=== PATIENT | female | born 1945 | race Caucasian/White ===

== ENCOUNTER 2019-11-17 17:09 | Emergency (ER) | payer MEDICARE ==
[~2019-11-17] VITALS: Ht 162.6 cm; Wt 63.5 kg
[~2019-11-17 17:09] MED LIST: ASPIR 8181 MG PO; ATIVAN0.5 MG PO; HYDROCODON-ACE1 EAC7 PO; LIORESAL 10 MG10 MG PO; LIPITOR10 MG PO; MINOCIN100 MG PO; NEURONTIN 300300 M1 PO; NOHOMEMEDICATIONS; PROTONIX40 M1 PO; SALINE FLUSH IV PUSH; VALIUM5 MG PO
[2019-11-17 17:41] LABS: HEMATOCRIT 39.7 % (37.0-47.0); HEMOGLOBIN 13.7 gm/dL (12.0-15.0); MCH 31.7 pg (26.0-34.0); MCHC 34.4 g/dL (28.0-37.0); MCV 92.2 fL (80.0-100.0); NUCLEATED RBCS 0 /100WBC; PLATELET COUNT* 164 thou/uL (150-400); RBC 4.31 mil/uL (4.20-5.00); RDW-CV 12.6 % (10.5-14.5)
[2019-11-17 17:48] LABS: CALCIUM 11.2 mg/dL (8.5-10.1); CREATININE 1.3 mg/dL (0.6-1.3); POTASSIUM 4.3 mmol/L (3.5-5.1)
[2019-11-17 17:53] LABS: ALBUMIN 3.7 g/dL (3.4-5.0); TOTAL BILIRUBIN 0.3 mg/dL (<0.1-1.0); TOTAL PROTEIN 7.5 g/dL (6.4-8.2)
[2019-11-17 17:55] LABS: ABSOLUTE LYMPHOCYTES 0.8 thou/uL (0.8-5.3); ABSOLUTE MONOCYTES 0.1 thou/uL (0.0-1.2); ABSOLUTE NEUTROPHILS 7.1 thou/uL (1.6-8.1); ATYPICAL LYMPHS 2 %
[2019-11-17 17:56] LABS: PLATELET ESTIMATE ADEQUATE
[2019-11-17 19:14] LABS: URINE BILIRUBIN NEGATIVE (Negative); URINE BLOOD 2+ (Negative); URINE CLARITY HAZY; URINE COLOR YELLOW; URINE GLUCOSE-RANDOM NEGATIVE (Negative); URINE KETONES NEGATIVE (Negative); URINE LEUKOCYTES-REFLEX 1+ (Negative); URINE NITRITE-REFLEX POSITIVE (Negative); URINE PROTEIN NEGATIVE (Negative); URINE UROBILINOGEN 0.2 E.U./dl (0.2-1.0)
[2019-11-17 19:17] LABS: BACTERIA-REFLEX >30 Many /HPF (None Seen); CASTS None Seen /LPF (None Seen); CRYSTALS None Seen /LPF (None Seen); SQUAMOUS 4-10 Moderate /LPF (0-3); URINE RBC 3-10 Few /HPF (0-2); URINE WBC-REFLEX 0-5 Rare /HPF (0-5)
[2019-11-17] MEDS ORDERED: FLOMAX0.4 MG PO ×2 (21:09→21:14)
[2019-11-17] MEDS ORDERED: OXYCODONE HCL 55 MG PO ×2 (21:09→21:14)
[2019-11-17] MEDS ORDERED: LEVAQUIN 500 M500 M3 PO (21:09)
[2019-11-17] MEDS ORDERED: FLAGYL500 M1 PO ×2 (21:09→21:14)
[2019-11-17] MEDS ORDERED: LEVAQUIN 500 M500 M6 PO (21:14)
[2019-11-17 21:58] VITALS: BP 109/77
== END 2019-11-17 21:59 | disposition home or self-care (01) ==
LOC: M.ERS 17:09
PROVIDERS: Emergency Medicine
DX: K52.9 Noninfective gastroenteritis and colitis, unspecified (principal); N39.0 Urinary tract infection, site not specified; N23 Unspecified renal colic; Z86.73 Personal history of transient ischemic attack (TIA), and cerebral infarction without residual deficits

== ENCOUNTER 2019-12-29 18:32 | Inpatient (IN) | payer MEDICARE ==
[~2019-12-29] VITALS: Ht 165.1 cm; Wt 61.2 kg
--- NOTE | ~2019-12-29 | PROC ---
[address] [address] PROCEDURE REPORT Name: FRANDY MARCELINO Room: [address] IN M.R.#: [id number] Admission: 12/29/19 Attend Phys: José Manuel Liz MD Discharge: 01/02/20 Date of : 49 Report #: [id number] THIS REPORT FOR: //name// cc: Homa Salcedo Angela Jo RNP ~ THIS REPORT FOR: //name// For GI report, please see the Provation report in Perceptive 7 content. By: 0615Medical Records Staff MARY /DARRYL
--- NOTE | ~2019-12-29 | H ---
[place] [address] HISTORY AND PHYSICAL Name: FRANDY MARCELINO Room: [address] IN [facility]#: [id number] Admission: 12/29/19 Attend Phys: José Manuel Liz MD Discharge: Date of : 49 Report #: [id number] THIS REPORT FOR: //name// cc: Homa Salcedo Angela Jo RNP ~ THIS REPORT FOR: //name// CC: Homa Liz DATE OF SERVICE: 12/29/2019 REASON FOR CONSULT: Abnormal CT and rectal bleeding. HISTORY OF PRESENT ILLNESS: This is a 74-year-old female with history of CVA and right-sided deficit. The patient reports that she usually have normal bowel habits, but yesterday after eating a salad, she tried to have a bowel movement but could not. After straining for a while, she started having bloody stool. This prompted her to call her primary care physician who encouraged her to come to emergency room. Upon her visit in ER, she had a CT of abdomen and pelvis, which revealed thickening of the left side of the colon. She also had mild leukocytosis. The patient was admitted to hospital and we were consulted. Currently, the patient is lying in bed, complains of some pain in the left side, mainly with deep palpation. She denies fever or chills, but reports that she is still having rectal bleeding. She denies any upper GI symptoms. She denies nausea, vomiting, dyspepsia, GERD or dysphagia. The patient reports that she usually takes a baby aspirin and ibuprofen before going to bed. She is not on any other blood thinners. PAST MEDICAL HISTORY: Significant for; 1. HISTORY of CVA with right-sided weakness. 2. Kidney stones. 3. Anxiety disorder. 4. Chronic pain. 5. Hypercalcemia. The patient also takes medication for dyslipidemia. ALLERGIES: No known drug allergy. MEDICATIONS: Please refer to MAR. SOCIAL HISTORY: The patient lives at home, has had history of stroke with right hemiparesis. She also was in the hospital recently for kidney stones. FAMILY HISTORY: [place] [address] HISTORY AND PHYSICAL Name: FRANDY MARCELINO Room: [address]#: [id number] Admission: 12/29/19 Attend Phys: José Manuel Liz MD Discharge: Date of : 49 Report #: [id number] PHYSICAL EXAMINATION: VITAL SIGNS: Reveals blood pressure of 128/76, respirations 19, pulse 107, temperature 98. LUNGS: Clear. CARDIOVASCULAR: Regular. ABDOMEN: Soft, tender to palpation in the left side. Bowel sounds are positive. NEUROLOGIC: The patient is alert and oriented x 3. There is a right-sided weakness. LABORATORY DATA: Revealed sodium of 142, potassium 3.9, BUN is 22, creatinine is 0.8, glucose is 176, lipase 289. Magnesium 1.8, ALT is 20, alkaline phosphatase is 101. INR is 1.0. WBC is 12.1 with hemoglobin of 14 and platelet of 167. IMAGING: As discussed above. ASSESSMENT AND PLAN: The patient with acute abdominal pain and diarrhea, which is bloody. She also has mild leukocytosis and CT suggestive of thickening of the colon in the left side. She has never had a colonoscopy. Our suspicion is high for colonic ischemia. We will place her on antibiotic including Cipro and Flagyl as she has abdominal pain and leukocytosis. We will proceed with prepping her for colonoscopy tomorrow and make further recommendation based on finding. The patient is agreeable with plan. By: 1134 [id number] Mares MD /nt
[~2019-12-29 18:32] MED LIST changes: +FLAGYL500 M1 PO; +FLOMAX0.4 MG PO; +LEVAQUIN 500 M500 M3 PO; +LEVAQUIN 500 M500 M6 PO; +OXYCODONE HCL 55 MG PO
[2019-12-29 18:41] VITALS: BP 140/83
[2019-12-29] MEDS ORDERED: LORAZEPAM 0.50.5 MG PO (18:46)
[2019-12-29 19:00] LABS: HEMATOCRIT 40.5 % (37.0-47.0); MCH 31.8 pg (26.0-34.0); MCHC 34.6 g/dL (28.0-37.0); MCV 91.8 fL (80.0-100.0); MPV 7.8 fl. (7.2-11.1); NUCLEATED RBCS 0 /100WBC; PLATELET COUNT* 167 thou/uL (150-400); RBC 4.41 mil/uL (4.20-5.00); RDW-CV 12.9 % (10.5-14.5); WBC 12.1 thou/uL (4.0-11.0)
[2019-12-29 19:05] LABS: CALCIUM 10.6 mg/dL (8.5-10.1); CREATININE 0.8 mg/dL (0.6-1.3); POTASSIUM 3.9 mmol/L (3.5-5.1)
[2019-12-29 19:08] LABS: APTT 21.9 Seconds (25.0-31.3); PROTIME 10.3 Seconds (9.20-11.50)
[2019-12-29 19:09] LABS: ALBUMIN 3.8 g/dL (3.4-5.0); TOTAL BILIRUBIN 0.4 mg/dL (<0.1-1.0); TOTAL PROTEIN 7.5 g/dL (6.4-8.2)
[2019-12-29 19:24] LABS: ABSOLUTE LYMPHOCYTES 0.8 thou/uL (0.8-5.3); ABSOLUTE MONOCYTES 0.6 thou/uL (0.0-1.2); ABSOLUTE NEUTROPHILS 10.6 thou/uL (1.6-8.1)
[2019-12-29 19:25] LABS: PLATELET ESTIMATE ADEQUATE
[2019-12-29 20:15] LABS: URINE BILIRUBIN NEGATIVE (Negative); URINE BLOOD 1+ (Negative); URINE COLOR YELLOW; URINE GLUCOSE-RANDOM NEGATIVE (Negative); URINE KETONES 1+ (Negative); URINE LEUKOCYTES NEGATIVE (Negative); URINE NITRITE NEGATIVE (Negative); URINE PROTEIN NEGATIVE (Negative); URINE UROBILINOGEN 0.2 E.U./dl (0.2-1.0)
[2019-12-29 20:16] LABS: URINE CLARITY HAZY
[2019-12-29 20:25] LABS: SQUAMOUS 0-3 Few /LPF (0-3)
[2019-12-29 20:26] LABS: BACTERIA None Seen /HPF (None Seen); CASTS None Seen /LPF (None Seen); CRYSTALS None Seen /LPF (None Seen); MUCUS 0-3 Light strn/LPF (None Seen); URINE RBC 0-2 Rare /HPF (0-2); URINE WBC None Seen /HPF (0-5)
[2019-12-29 22:35] VITALS: BP 143/86
--- NOTE | 2019-12-30 04:52 | NUR ---
PATIENT REPORTS SLIGHT ABDOMINAL PAIN RATE 4/10 GAVE A ONETIME ORDER DOSE OF HYDROCODONE AT 0206. SHE IS ASSIST X 1 ON BEDPAN. SHE STATES SHE USES MOSTLY A WHEELCHAIR AT HOME BUT CAN USE A CANE AND IS ABLE TO AMBULATE A LITTLE. HX OF CVA IN 2013 WITH RIGHT SIDED WEAKNESS ON BOTH UPPER AND LOWER RIGHT LIMBS. ALERT AND ORIENTED BUT WITH SOME FORGETFULNESS OF DATES ETC. CT SHOWS COLITIS. BLOOD REPORTED IN STOOL AND URINE. SHE WAS ABLE TO REST THROUGH SHIFT AFTER ARRIVING 2230. PLAN TO CONSULT WITH GI. WILL CONTINUE TO MONITOR.
--- NOTE | 2019-12-30 05:35 | NUR ---
TRIED TO CALL IN ROUTINE CONSULT TO GI - DR SIMPSON AT [phone]. OFFICE OPENS AT 8 AM. WILL PASS TO DAY SHIFT.
[2019-12-30 09:10] VITALS: BP 128/76
[2019-12-30 12:10] LABS: ABSOLUTE LYMPHOCYTES 0.9 thou/uL (0.8-5.3); ABSOLUTE MONOCYTES 0.9 thou/uL (0.0-1.2); ABSOLUTE NEUTROPHILS 10.6 thou/uL (1.6-8.1); BASOPHILS 0.2 %; HEMOGLOBIN 13.5 gm/dL (12.0-15.0); LYMPHOCYTES 7.6 %; MCH 31.7 pg (26.0-34.0); MCHC 34.6 g/dL (28.0-37.0); MCV 91.8 fL (80.0-100.0); MONOCYTES 7.1 %; MPV 7.9 fl. (7.2-11.1); NUCLEATED RBCS 0 /100WBC; PLATELET COUNT* 145 thou/uL (150-400); POLYS 85.1 %; RBC 4.25 mil/uL (4.20-5.00); RDW-CV 12.7 % (10.5-14.5); WBC 12.4 thou/uL (4.0-11.0)
[2019-12-30 12:19] LABS: CALCIUM 9.6 mg/dL (8.5-10.1); CREATININE 0.7 mg/dL (0.6-1.3); MAGNESIUM 1.6 mg/dL (1.8-2.4); POTASSIUM 3.5 mmol/L (3.5-5.1)
[2019-12-30 12:39] LABS: CALCIUM 9.4 mg/dL (8.5-10.1); CREATININE 0.8 mg/dL (0.6-1.3); PHOSPHORUS* 1.5 mg/dL (2.5-4.9)
--- NOTE | 2019-12-30 12:57 | EKG ---
[place] [address] ELECTROCARDIOGRAM REPORT Name: EDGARDO MARCELINONA Patti Room: [address] ADM IN M.R.#: [id number] Admission: 12/29/19 Attend Phys: José Manuel Liz, Discharge: Date of : 49 Date of Service: 12/29/19 190 Report #: [id number] THIS REPORT FOR: //name// [facility] ED Test Date: 2019-12-29 Test Time: 19:04:12 Pat Name: FRANDY MARCELINO Department: Room: [facility] Gender: F Loop Cutter: [place] : 1945 Requested By: Gris Mead Order Number: [id number] MD: Cy Peng Measurements Intervals [place] Rate: 95 P: 52 WA: 165 QRS: -45 QRSD: 94 T: 43 QT: 358 QTc: 450 Interpretive Statements Sinus rhythm Probable left atrial enlargement Inferior infarct, old Consider anterior infarct Baseline wander in lead(s) V5 Compared to ECG 08/28/2014 07:18:08 Sinus tachycardia no longer present Myocardial infarct finding still present Electronically Signed On 12-30-2019 12:56:12 SHIPPING WEIGHER by Cy Peng [email or web address] <ELECTRONICALLY SIGNED> By: Cy Peng MD, FAC 12/30/19 1256 1904 1904 Cy Peng MD, [facility] /EPI
--- NOTE | 2019-12-30 17:07 | NUR ---
ASSUMED CARE OF PATIENT AT APPROX 0730. ALERT AND ORIENTED X4. ASSESSMENT COMPLETED AND CHARTED. VSS ON ROOM AIR. PATIENT HAS RIGHT SIDED WEAKNESS FROM PREVIOUS CVA, CANNOT BEAR WEIGHT WITH RIGHT ARM OR LEG. DR GRIGGS SAW PATIENT THIS AM AND ORDERED BOWEL PREP OF MIRALAX AND DUCOLAX. DISCUSSED OPTION FOR USING THE COMMODE OR BEDPAN DURING BOWEL PREP, DUE TO HER RIGHT SIDED WEAKNESS AND INABILITY TO HOLD HER BOWELS TO GET ON THE BEDPAN OR COMMODE. PATIENT REFUSED BOWEL PREP STATING THAT SHE COULDNT TOLERATE THE CRAMPING SHE WILL HAVE WITH IT. CALLED DR GRIGGS TO LET HIM KNOW THAT THE PATIENT DOES NOT WANT TO DO THE BOWEL PREP AND THAT SHE MAY NOT BE READY FOR HER COLONOSCOPY TOMORROW MORNING. WILL DISCUSS PREP WITH PATIENT AGAIN. FALL PRECAUTIONS IN PLACE. CALL LIGHT WITHIN REACH. HOURLY ROUNDS COMPLETED. WILL CONTINUE WITH PLAN OF CARE PATIENT ALLOWS PARTICIPATION.
[2019-12-30 19:24] VITALS: BP 132/78
[2019-12-31 03:54] LABS: CALCIUM 9.1 mg/dL (8.5-10.1); CREATININE 0.6 mg/dL (0.6-1.3); HEMATOCRIT 36.8 % (37.0-47.0); HEMOGLOBIN 12.8 gm/dL (12.0-15.0); MAGNESIUM 1.6 mg/dL (1.8-2.4); MCH 31.5 pg (26.0-34.0); MCHC 34.7 g/dL (28.0-37.0); MCV 90.9 fL (80.0-100.0); MPV 7.7 fl. (7.2-11.1); POTASSIUM 3.2 mmol/L (3.5-5.1); RBC 4.05 mil/uL (4.20-5.00); RDW-CV 12.9 % (10.5-14.5); WBC 11.7 thou/uL (4.0-11.0)
--- NOTE | 2019-12-31 04:20 | NUR ---
ASSUMED CARE OF PT 12/30/19 AT APPROX 1915, PT A&OX4, PT ON ROOM AIR, VSS, DISCUSSED BOWEL PREP WITH PT - PT REFUSING BOWEL PREP D/T WORRIES OF "REALLY BAD CRAMPING", PT AWARE THIS MAY PREVENT COLONOSCOPY PROCEDURE THIS AM, PT USING BEDPAN FOR VOIDING, NO BM THIS SHIFT. ASSESSMENTS AND HOURLY ROUNDINGS COMPLETED, WILL CONTINUE TO MONITOR.
[2019-12-31 07:40] VITALS: BP 114/72
--- NOTE | 2019-12-31 18:42 | NUR ---
ASSUMED CARE OF PATIENT AT APPROX 0730. ALERT AND OREINTED X4. ASSESSMENT COMPLETED AND CHARTED. VSS ON ON ROOM AIR. NO COMPLAINTS OF PAIN THIS SHIFT. PATIENT AGREED TO START BOWEL PREP THAT WAS ORDERED YESTERDAY, MIRALAX STARTED THIS AFTERNOON. PATIENT HAVING LIQUID STOOLS, STILL HAVING BLOOD IN THEM. FLUIDS INFUSED AND CIPRO AND FLAGYL GIVEN PO ORDERED. NO OTHER COMPLAINTS THIS SHIFT. FALL PRECAUTIONS IN PLACE. CALL LIGHT WITHIN REACH. HOURLY ROUNDS COMPLETED. WILL CONTINUE WITH PLAN OF CARE.
[2019-12-31 20:05] VITALS: BP 134/78
[2019-12-31 22:09] VITALS: BP 134/78
[2020-01-01 00:39] VITALS: BP 134/78
[2020-01-01 03:26] LABS: HEMATOCRIT 35.3 % (37.0-47.0); HEMOGLOBIN 12.2 gm/dL (12.0-15.0); MCH 31.7 pg (26.0-34.0); MCHC 34.7 g/dL (28.0-37.0); MCV 91.5 fL (80.0-100.0); RBC 3.86 mil/uL (4.20-5.00); RDW-CV 13.1 % (10.5-14.5); WBC 8.7 thou/uL (4.0-11.0)
[2020-01-01 03:52] LABS: CALCIUM 8.9 mg/dL (8.5-10.1); CREATININE 0.6 mg/dL (0.6-1.3); MAGNESIUM 1.7 mg/dL (1.8-2.4); POTASSIUM 3.3 mmol/L (3.5-5.1)
--- NOTE | 2020-01-01 05:28 | NUR ---
ASSUMED CARE OF PT 12/31/19, PT A&OX4 ON ROOM AIR, VSS, BOWEL PREP FLUIDS COMPLETED AT 2300, ASSESSMENTS AND HOURLY ROUNDINGS COMPLETED, AM POTASSIUM 3.3 AND MAGNESIUM 1.7 - ELECTROLYTE PROTOCOL DOSES STARTED. WILL CONTINUE TO MONITOR.
[2020-01-01 08:07] VITALS: BP 126/77
[2020-01-01 13:13] VITALS: BP 116/68
--- NOTE | 2020-01-01 14:50 | NUR ---
SW met with pt and pt dtr to complete initial assessment, introduce self, and SW role. Pt alert, oriented. Pt lives at home alone. Pt has hx of [facility]. Pt has needed DME, wheelchair. Pt does not anticipate having any needs at dc. SW to remain available to assist with safe dc planning if needs arise.
[2020-01-01 15:51] VITALS: BP 132/68
--- NOTE | 2020-01-01 16:02 | NUR ---
ASSUMED CARE AT 0730. ALERT ORIENTED PLEASANT COOPERATIVE. HX OF OLD CVA RT. SIDE WEAKNESS. RECENT HX OF DIARRHEA WITH BLOOD IN STOOL AT HOME. PT. HAS IV FLUIDS INFUSING L ARM PER PUMP. PT. NPO FOR COLONOSCOPY AT 0930. VOIDS PER BEDPAN AND HAD LIQUID LIGHT BROWN STOOL. MOISTURE BARRIER TO BUTTOCKS REDNESS DUE TO STOOLS AND BOWEL PREP. RETURNED TO ROOM AT 1313 ALERT ORIENTED FROM PACU. LUNCH PROVIDED AND MEDS RESUMED. TRANSFERRED TO W/C AND BACK TO BED WHILE DAUGHTER WAS HERE. TAKES MEDS WITHOUT DIFFICULTY.
[2020-01-01 21:00] VITALS: BP 134/81
[2020-01-01 21:15] LABS: MAGNESIUM 1.8 mg/dL (1.8-2.4)
--- NOTE | 2020-01-02 07:29 | NUR ---
PATIENT HAS SLEPT WELL THROUGHOUT MOST OF THE NIGHT. VSS ON RA. NO C/O PAIN. MEDICATIONS GIVEN ORDERED AND CHARTED. ASSESSMENT CHARTED. IV IN LEFT FOREARM-NS @ 75/HR. PATIENT INSTRUCTED TO USE CALL LIGHT WHEN NEEDING ASSISTANCE. HOURLY ROUNDS MADE. WILL CONTINUE WITH PLAN OF CARE AND NURSING TO MONITOR.
[2020-01-02 07:30] VITALS: BP 139/87
[2020-01-02] MEDS ORDERED: CIPRO500 MG PO (07:59)
[2020-01-02 08:29] VITALS: BP 134/81
--- NOTE | 2020-01-02 10:47 | NUR ---
ASSUMED CARE OF PATIENT AT APPROX 0730. ALERT AND ORIENTED X4. VSS ON ROOM AIR. NO COMPLAINTS OF PAIN. PATIENT GIVEN BED BATH AND DRESSED. DISCHARGED AT 0935 WITH ALL PERSONAL BELONGINGS AND DISCHARGE INFORMATION.
--- NOTE | 2020-01-03 13:08 | PATH ---
[address] [address] PATHOLOGY RPT PROCEDURE Name: CATARINA MARCELINO Room: [address] IN .R.#: [id number] Admission: 12/29/19 Date of : 49 Discharge: 01/02/20 Report #: [id number] Path Case #: [id number] [facility] Accession Number: [id number] . 01 Material submitted: . colon - SIGMOID COLON R/O ISCHEMIC COLITIS. Modifiers: sigmoid . 01 Clinical history: . R/O ischemic colitis . 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 See comment. (NISA:pit 01/03/2020) QTP 01/03/2020 1043 Local . 02 Comment: The biopsy reveals abundant acutely inflamed and necrotic colonic mucosa with some areas demonstrating typical features of ischemic colitis where the deepest aspects of crypts are preserved in association with overlying ischemia and necrosis and condensation of the lamina propria possibly representing early fibrosis. There is no significant basal lymphoplasmacytosis or crypt distortion seen in areas of viable mucosa to elevate a concern for inflammatory bowel disease. (NISA:pit 01/03/2020) . 02 Electronically signed: . Shaheen Webb MD, Pathologist NPI- [id number] . 01 Gross description: . The specimen is received in formalin, labeled "Catarina Marcelino, sigmoid colon, R/O ischemic colitis". Received are four segments of pale roa soft tissue ranging in size from 0.3 to 0.5 cm in maximum dimensions. The specimen is submitted entirely in cassette A1. (CAA; 01/02/2020) QAC/QAC 01/02/2020 1325 Local . 02 Pathologist provided ICD-10: K55.049 . 02 CPT . 326674 Specimen Comment: A courtesy copy of this report has been sent to [phone] Specimen Comment: [phone], Specimen Comment: Report sent to ,DR COON / [place] [address] PATHOLOGY RPT PROCEDURE Name: CATARINA MARCELINO Room: [facility] IN M.R.#: [id number] Admission: 12/29/19 Date of : 49 Discharge: 01/02/20 Report #: [id number] Path Case #: [id number] Performed at: 01 [facility] [place] [address] [facility] [address], [place], [place] [id number] MD Duke Montero MD Phone: [phone] Performed at: 02 [facility] [address], [place], [place] [id number] MD Shaheen Webb MD Phone: [phone]
== END 2020-01-02 09:35 | disposition home or self-care (01) | DRG 378 ==
LOC: M.ERS 18:32 → M.ORTHSURG 20:47 → M.TBA-ER 20:47 → M.ORTHSURG 22:30
PROVIDERS: Physician Assistant; ADMIT Internal Medicine
PROC: 0DBN8ZX Excision of Sigmoid Colon, Via Natural or Artificial Opening Endoscopic, Diagnostic (ICD-10-PCS; principal; 2020-01-01)
DX: K92.1 Melena (principal); K55.9 Vascular disorder of intestine, unspecified; R65.10 Systemic inflammatory response syndrome (SIRS) of non-infectious origin without acute organ dysfunction; N39.0 Urinary tract infection, site not specified; I69.351 Hemiplegia and hemiparesis following cerebral infarction affecting right dominant side; K57.30 Diverticulosis of large intestine without perforation or abscess without bleeding; G89.29 Other chronic pain; F41.1 Generalized anxiety disorder; E21.3 Hyperparathyroidism, unspecified; E78.5 Hyperlipidemia, unspecified; E67.3 Hypervitaminosis D; Z79.899 Other long term (current) drug therapy; Z79.82 Long term (current) use of aspirin; Z87.442 Personal history of urinary calculi

== ENCOUNTER 2020-01-16 12:14 | Emergency (ER) | payer MEDICARE ==
[~2020-01-16] VITALS: Ht 165.1 cm; Wt 61.2 kg
[~2020-01-16 12:14] MED LIST changes: +CIPRO500 MG PO; +LORAZEPAM 0.50.5 MG PO
[2020-01-16 14:45] LABS: ABSOLUTE LYMPHOCYTES 0.8 thou/uL (0.8-5.3); ABSOLUTE MONOCYTES 0.4 thou/uL (0.0-1.2); BASOPHILS 0.2 %; HEMATOCRIT 34.4 % (37.0-47.0); MCH 32.2 pg (26.0-34.0); MCHC 34.8 g/dL (28.0-37.0); MCV 92.6 fL (80.0-100.0); MONOCYTES 8.4 %; MPV 7.3 fl. (7.2-11.1); NUCLEATED RBCS 0 /100WBC; PLATELET COUNT* 145 thou/uL (150-400); POLYS 75.4 %; RBC 3.71 mil/uL (4.20-5.00); RDW-CV 12.9 % (10.5-14.5); WBC 5.3 thou/uL (4.0-11.0)
[2020-01-16 14:53] LABS: CREATININE 0.7 mg/dL (0.6-1.3); POTASSIUM 3.8 mmol/L (3.5-5.1)
[2020-01-16 15:03] LABS: ALBUMIN 3.3 g/dL (3.4-5.0); PROTIME 10.6 Seconds (9.20-11.50); TOTAL BILIRUBIN 0.7 mg/dL (<0.1-1.0); TOTAL PROTEIN 6.9 g/dL (6.4-8.2)
[2020-01-16] MEDS ORDERED: XARELTO15 MG PO (18:26)
[2020-01-16] MEDS ORDERED: XARELTO20 MG PO (18:26)
[2020-01-16] MEDS ORDERED: MACROBID 100 M100 M1 PO (18:26)
[2020-01-16 18:59] VITALS: BP 122/66
--- NOTE | 2020-01-17 10:45 | EKG ---
[place] [address] ELECTROCARDIOGRAM REPORT Name: EDGARDO MARCELINONA Patti Room: [facility]#: [id number] Admission: 01/16/20 Attend Phys: Discharge: 01/16/20 Date of : 49 Date of Service: 01/16/20 1507 Report #: [id number] THIS REPORT FOR: //name// [facility] ED Test Date: 2020-01-16 Test Time: 15:07:37 Pat Name: FRANDY MARCELINO Department: Room: Gender: Therapy Site Coordinator: [facility] : 1945 Requested By: Jerrell Crooks Order Number: [id number] MD: Cy Peng Measurements Intervals [place] Rate: 94 P: 61 MA: 162 QRS: -21 QRSD: 98 T: 51 QT: 361 QTc: 452 Interpretive Statements Sinus rhythm poor r wave progression Borderline left axis deviation Low voltage, precordial leads Compared to ECG 12/29/2019 19:04:12 Low QRS voltage now present Electronically Signed On 01-17-2020 10:44:47 CDT by Cy Peng [email or web address] <ELECTRONICALLY SIGNED> By: Cy Peng MD, FAC 01/17/20 1044 1507 1507 Cy Peng MD, [facility] /EPI
== END 2020-01-16 19:00 | disposition home or self-care (01) ==
LOC: M.ERS 12:14
PROVIDERS: Emergency Medicine
DX: I26.99 Other pulmonary embolism without acute cor pulmonale (principal); G89.29 Other chronic pain; Z86.73 Personal history of transient ischemic attack (TIA), and cerebral infarction without residual deficits; Z87.442 Personal history of urinary calculi